=== PATIENT | female | born 1945 | race Caucasian/White ===

== ENCOUNTER 2020-08-19 10:15 | Emergency (ER) | payer OTHER ==
--- OUTSIDE RECORDS SUMMARY | 2020-08-19 10:19 | XMS REPORT | Continuity of Care Document ---
:1945 Author Organization [facility] t Address [address] [place] [address] Care Team Providers Name Role Phone Cullen Layton Primary Care Physician Unavailable YURI ESTRADA Attending Clinician Unavailable YURI ESTRADA Admitting Clinician Unavailable Problems Condition Condition Condition Status Onset Resolution Last Treating Co mments Source Name Details Category Date Date Treatment Clinician Date Cataract, Cataract, Disease Active [facility] 10-02 [facility]: [facility] 00 [place] Neuropathy Neuropathy Disease Active [facility] 00 [place] Type 2 Type [address] [facility] diabetes diabetes 08-01 [facility] mellitus mellitus 00:00: Medica l 00 [place] Hypertensi Hypertensi Disease Active [facility] on on 08-01 [facility] 00 [place] High High Disease Active [facility] cholestero cholestero 08-01 [facility] - l l 00:00: Medical 00 Center Allergies, Adverse Reactions, Alerts Allergy Allergy Status Severity Reaction(s) Onset Inactive Treating Comm ents Source Name Type Date Date Clinician [place] Propensi Active Dizzy [facility] ty to 07-31 [facility] - adverse 00:00: Medical reaction 00 Center s Social History Social Habit Start Date Stop Date Quantity Comments Source Sex Assigned At [facility] Alcohol intake 2016-10-03 2016-10-03 Current [facility] es - 00:00:00 00:00:00 non-drinker of Medical Ce nter alcohol (finding) Smoking Status Start Date Stop Date Source Never smoker [facility] Medications Ordered Filled Start Stop Current Ordering Indication Dosage Frequency Signature Comments Components Source Medication Medication Date Date Medication? Clinician (SIG) Name Name metoprolol Yes 50mg QD Take [address] (TOPROL-XL) 10-03 by mouth [facility] - 50 MG 24 hr 11:59: daily. Medi danielle tablet [address] [place] [address] topiramate Yes 50mg Q.5D Take [address] (TOPAMAX) 10-03 by mouth 2 [facility] - 50 MG 11:59: (two) Medical tablet 33 times Center daily. fentaNYL Yes 1{patch Place [address] [facility] (DURAGESIC) 10-03 } patch onto Pauline kes - 50 mcg/hr 11:59: the skin Medi danielle patch 33 every Center third day. alendronate Yes 70mg Take [address] [facility] (FOSAMAX) 10-03 by mouth [facility] - 70 MG 11:59: every 7 Medical tablet 33 days Take Center in the morning with a full glass of water, on an empty stomach, and do not take anything else by mouth or lie down for the next 30 min. . latanoprost Yes 1[drp] QD [address] (XALATAN) 10-03 nightly. [facility] - 0.005 % 11:59: Medical ophthalmic [address] [place] [address] solution aspirin 81 Yes 81mg QD Take [address] MG EC 10-03 by mouth [facility] - tablet 11:59: daily. [address] cholecalcif Yes Take by [facility] St khang, 10-03 mouth. [facility] - vitamin D3, 11:59: Medica l 2,[address] [place] [address] Cap VIT C/VIT Yes Take by [facility] S t E/LUTEIN/MD 10-03 mouth. [facility] - N/OMEGA-3 11:59: Medical (OCUVITE [address] [place] [address] ORAL) glyBURIDE Yes 3mg Take [address] [facility] micronized 10-03 by mouth 2 Maribel es - (GLYNASE) 3 11:59: (two) Medic al MG tablet 33 times Center daily before meals. simvastatin Yes 20mg QD Take [address] [facility] (ZOCOR) 20 6-28 by mouth [facility] - MG tablet 11:59: nightly. [address] Procedures This patient has no known procedures. Results Test Description Test Time Test Comments Results Result Comments Source POCT-GLUCOSE METER 2016-10-03 10:17:00 Test Item Value Reference Range Interpretation Comme nts POC-GLUCOSE METER (BEAKER) (test 215 mg/dL 70-110 H TESTED AT [facility] 7200 code = 1538) [facility] [address] POCT-GLUCOSE [id number] 10:10:00 Test Item Value Reference Range Interpretation Comments POC-GLUCOSE METER 152 mg/dL 70-110 H TESTED AT [facility] 7200 (BEAKER) (test code MARISSA JONES B = 1538) [facility] 7703 0
[2020-08-19 11:08] LABS: Basophils % 0.8 % (0-1.3); Hematocrit 51.3 % (36.0-45.0); Lymphocytes % 4.7 % (15.3-44.8); RBC Red Blood Cell Count 5.09 M/uL (3.86-4.86)
--- NOTE | 2020-08-19 11:13 | RAD REPORT ---
EXAM DESCRIPTION: RAD - Chest Single View - 08/19/2020 11:07 am CLINICAL HISTORY: DYSPNEA Chest pain. COMPARISON: CHEST SINGLE VIEW dated 11/10/2010 FINDINGS: Portable technique limits examination quality. The lungs are grossly clear. The heart is normal in size. No displaced fractures. IMPRESSION: No acute intrathoracic process suspected.
--- NOTE | 2020-08-19 11:18 | RAD REPORT ---
EXAM DESCRIPTION: CT - Head Brain Wo Cont - 08/19/2020 11:11 am CLINICAL HISTORY: DIZZINESS Headache, drowsiness COMPARISON: No comparisons TECHNIQUE: All CT scans are performed using dose optimization technique as appropriate and may inclu de automated exposure control or mA/KV adjustment according to patient size. FINDINGS: No intracranial hemorrhage, hydrocephalus or extra-axial fluid collection.Mild brain atrop hy.No areas of brain edema or evidence of midline shift. The paranasal sinuses and mastoids are clear. The calvarium is intact. IMPRESSION: No acute intracranial abnormality.
[2020-08-19 11:20] LABS: Protime INR 0.91
[2020-08-19] MEDS ORDERED: ONDANSETRON 4 MG/2 ML VIAL ONE (11:20)
[2020-08-19] MEDS ORDERED: NA CHLORIDE 0.9% 1,000 ML ONE (11:20)
[2020-08-19 11:32] LABS: ALT/SGPT 36 U/L (12-78); AST/SGOT 30 U/L (15-37); Alkaline Phosphatase 123 U/L (45-117); BUN Blood Urea Nitrogen 25 mg/dL (7-18); Bilirubin Direct 0.2 mg/dL (0-0.2); Bilirubin Total 0.7 mg/dL (0.2-1.0); Magnesium 2.5 mg/dL (1.8-2.4); NT PRO-BNP 118 pg/mL (<125); Potassium 4.5 mmol/L (3.5-5.1); Protein, Total 7.8 g/dL (6.4-8.2); Sodium Level 130 mmol/L (136-145); Troponin (Emerg Dept Use Only) < 0.02 ng/mL (0.0-0.045)
[2020-08-19 11:33] LABS: Bicarbonate 4 mmol/L (21-32)
[2020-08-19 11:34] LABS: Glucose Level 492 mg/dL (74-106)
[2020-08-19 11:56] LABS: Arterial Blood Carboxyhemoglob 1.6 % (0-1.5); Blood Gas Oxyhemoglobin 94.9 % (94-97); Blood O2 Saturation 97.6 % (92-98.5)
[2020-08-19] MEDS ORDERED: Ringers Lactate 1,000 ML IV ONE (11:58)
[2020-08-19] MEDS ORDERED: D5W 1,000 ML with NA BICARB 8.4% 150 MEQ IV SCH ×2 (12:00)
--- NOTE | 2020-08-19 12:31 | ER ---
Nurse's Notes [facility] Name: Abigail Jose Age: 75 yrs Sex: Female : 1945 Arrival Date: 08/19/2020 Time: 10:17 Bed 13 Private MD: Diagnosis: Diabetes mellitus due to underlying condition with ketoacidosis without coma Presentation: 08/19 10:25 Chief complaint: Patient states: "I am having dizziness and nausea and vomiting that jd3 has been going on for 2 days now. I think I might be dehydrated. I am also having left eye/head pain that has been going on for about that time too.". Coronavirus screen: At this time, the client does not indicate any symptoms associated with coronavirus-19. Ebola Screen: Patient negative for fever greater than or equal to 101.5 degrees Fahrenheit, and additional compatible Ebola Virus Disease symptoms. Initial Sepsis Screen: Does the patient meet any 2 criteria? No. Patient's initial sepsis screen is negative. Does the patient have a suspected source of infection? No. Patient's initial sepsis screen is negative. Risk Assessment: Do you want to hurt yourself or someone else? Patient reports no desire to harm self or others. Onset of symptoms was August 17, 2020. 10:25 Acuity: RUEL 3 jd3 10:25 Method Of Arrival: Wheelchair jd3 Historical: - Allergies: 10:28 Lyrica; jd3 - Home Meds: 10:28 Metformin Oral [Active]; blood pressure med [Active]; jd3 - PMHx: 10:28 Hypertension; Diabetes - NIDDM; jd3 - PSHx: 10:28 eye; jd3 - Immunization history:: Adult Immunizations unknown. - Social history:: Smoking status: unknown. Screenin:30 Abuse screen: Denies threats or abuse. Denies injuries from another. Nutritional ca1 screening: No deficits noted. Tuberculosis screening: No symptoms or risk factors identified. Fall Risk IV access (20 points). Assessment: 10:30 General: Appears in no apparent distress. comfortable, Behavior is calm, cooperative, ca1 appropriate for age. Pain: Complains of pain in left eye Pain currently is 5 out of 10 on a pain scale. Is chronic. Neuro: Level of Consciousness is awake, alert, obeys commands, Oriented to person, place, time, situation, [employer] Lab Technician are equal bilaterally Moves all extremities. Gait is unsteady, Speech is normal, Facial symmetry appears normal, Reports dizziness. Cardiovascular: Heart tones S1 S2 present Capillary refill < 3 seconds Patient's skin is warm and dry. Respiratory: Airway is patent Respiratory effort is even, unlabored, Respiratory pattern is regular, symmetrical, Breath sounds are clear bilaterally. GI: Abdomen is flat, non-distended, Bowel sounds present X 4 quads. Abd is soft and non tender X 4 quads. Reports nausea, vomiting. : No signs and/or symptoms were reported regarding the genitourinary system. EENT: No signs and/or symptoms were reported regarding the EENT system. Derm: Skin is intact, is healthy with good turgor, Skin is pink, warm \\T\\ dry. Musculoskeletal: Circulation, motion, and sensation intact. Capillary refill < 3 seconds. 11:30 Reassessment: Patient appears in no apparent distress at this time. Patient and/or ca1 family updated on plan of care and expected duration. Pain level reassessed. Patient is alert, oriented x 3, equal unlabored respirations, skin warm/dry/pink. 12:30 Reassessment: Patient appears in no apparent distress at this time. Patient and/or ca1 family updated on plan of care and expected duration. Pain level reassessed. Patient is alert, oriented x 3, equal unlabored respirations, skin warm/dry/pink. 13:30 Reassessment: Patient appears in no apparent distress at this time. Patient and/or ca1 family updated on plan of care and expected duration. Pain level reassessed. Patient is alert, oriented x 3, equal unlabored respirations, skin warm/dry/pink. 14:33 Reassessment: Patient appears in no apparent distress at this time. Patient and/or ca1 family updated on plan of care and expected duration. Pain level reassessed. Patient is alert, oriented x 3, equal unlabored respirations, skin warm/dry/pink. Called report to Adrian Bird, to Philipp Gee RN. 15:57 Reassessment: Patient appears in no apparent distress at this time. Patient and/or ca1 family updated on plan of care and expected duration. Pain level reassessed. Patient is alert, oriented x 3, equal unlabored respirations, skin warm/dry/pink. Patient states feeling better. Patient states symptoms have improved. Vital Signs: 10:25 BP 150 / 75; Pulse 102; Resp 20; Temp 96.4; Pulse Ox 100% ; ca1 10:28 Weight 56.7 kg (R); Height 5 ft. 2 in. (157.48 cm) (R); Pain 5/10; jd3 11:00 BP 157 / 61; Pulse 97; Resp 18 S; Pulse Ox 100% on R/A; ca1 12:00 BP 150 / 91; Pulse 93; Resp 17 S; Pulse Ox 100% on R/A; ca1 13:00 BP 159 / 66; Pulse 98; Resp 16 S; Pulse Ox 100% on R/A; ca1 14:00 BP 141 / 66; Pulse 94; Resp 17 S; Pulse Ox 100% on R/A; ca1 14:32 Temp 97.1(TE); Weight 47.5 kg; ca1 15:57 BP 141 / 51; Pulse 88; Resp 16 S; Pulse Ox 100% on R/A; ca1 14:32 Body Mass Index 19.15 (47.50 kg, 157.48 cm) ca1 NIH Stroke Scale Scores: 10:50 NIHSS Score: 2 jr8 ED Course: 10:17 Patient arrived in ED. am2 10:21 Arm band placed on Patient placed in an exam room, on a stretcher. ll1 10:23 Baljit Hatch PA is PHCP. jr8 10:23 Buster Magana MD is Attending Physician. jr8 10:25 Hugh Solano, RN is Primary Nurse. jd3 10:25 Rebecca Alejandro, GEORGETTE is Primary Nurse. ca1 10:26 Triage completed. jd3 10:26 Patient has correct armband on for positive identification. Bed in low position. Call ca1 light in reach. Side rails up X2. school bus monitor on. Pulse ox on. NIBP on. Warm blanket given. 10:50 Missed attempt(s): 22 gauge in right forearm. Bleeding controlled, band aid applied, ca1 catheter tip intact. 10:58 Initial lab(s) drawn, by me, sent to lab. Inserted saline lock: 22 gauge in right ca1 antecubital area, using aseptic technique. Blood collected. 11:38 XRAY Chest (1 view) In Process Unspecified. EDMS 11:38 CT Head Brain wo Cont In Process Unspecified. EDMS 12:30 Derick Pabon DO is Hospitalizing Provider. jr8 12:41 Inserted saline lock: 20 gauge in left hand, using aseptic technique. ,using aseptic ca1 technique. by Jett PALOMINO Blood collected. 13:46 initiated a transfer with Meg from the [facility]. eb 13:59 connected he screw supervisor examination supervisor for [facility] with Baljit Brandon for patient eb transfer consultation. 14:03 administrative approval given by Meg Mendoza Rn/ patient has been accepted to [facility] ICU/ Dr. Fabio Cheema has accepted the patient in transfer/ report to be called to [phone]. 15:57 No provider procedures requiring assistance completed. Patient transferred, IV remains ca1 in place. Administered Medications: 11:03 Drug: NS 0.9% 1000 ml Route: IV; Rate: 1000 ml; Site: right antecubital; ca1 12:00 Follow up: IV Status: Completed infusion; IV Intake: 1000ml ca1 11:03 Drug: Zofran (Ondansetron) 4 mg Route: IVP; Site: right antecubital; ca1 14:34 Follow up: Response: No adverse reaction; Nausea is decreased ca1 11:43 Drug: Ringers - Lactated Ringers Solution 1000 ml Route: IV; Rate: bolus; Site: right ca1 antecubital; 13:00 Follow up: Response: No adverse reaction; IV Status: Completed infusion; IV Intake: ca1 1000ml 13:10 Drug: Insulin Drip - (Insulin Regular Human 100 units, NS 0.9% 100 ml) {Co-Signature: ca1 ll1 (Keke Sung RN).} Route: IV; Rate: calculated rate; Site: right antecubital; 14:35 Follow up: Response: No adverse reaction; IV Status: Infusion continued upon transfer ca1 Intake: 12:00 IV: 1000ml; Total: 1000ml. ca1 13:00 IV: 1000ml; Total: 2000ml. ca1 Output: 14:50 Urine: 500ml (Voided); Total: 500ml. ca1 Outcome: 12:31 Decision to Hospitalize by Provider. jr8 14:04 ER care complete, transfer ordered by . jr8 15:58 Transferred by ground EMS to [facility], Transfer form completed. X-rays sent ca1 w/ patient. 15:59 Condition: stable ca1 15:59 Instructed on the need for transfer. 16:17 Patient left the ED. ca1 NIH Stroke Scale - NIH Stroke Score Date: 08/19/2020 Time: 10:50 Total Score = 2 1a. Level of Consciousness (LOC) - 0(Alert) 1b. Level of Consciousness (LOC) (Year \\T\\ Age) - 0(Both) 1c. LOC Commands (Open \\T\\ Closes Eyes/Charging Operator) - 0(Both) 2. Best Gaze (Lateral Gaze Paresis) - 0(Normal) 3. Visual Field Loss - 0(No visual loss) 4. Facial Palsy - 0(Normal) 5a. Left Arm: Motor (10-second hold) - 0(No drift) 5b. Right Arm: Motor (10-second hold) - 0(No drift) 6a. Left Leg: Motor (5-second hold - always test supine) - 0(No drift) 6b. Right Leg: Motor (5-second hold - always test supine) - 0(No drift) 7. Limb Ataxia (finger/nose \\T\\ heel/morfin - test with eyes open) - 2(Present in two limbs) 8. Sensory Loss (pinprick arms/legs/face) - 0(Normal) 9. Best Language: Aphasia (description/naming/reading) - 0(No aphasia) 10. Dysarthria (speech clarity - read or repeat words) - 0(Normal) 11. Extinction and Inattention (visual/tactile/auditory/spatial/personal) - 0(No abnormality) Initials: jrChepe Signatures: Dispatcher [employer] EDMS Baljit Hatch PA PA jr8 Kaylan Ferris Jonathon, RN RN jd3 Lalita Perez Cheryl, RN RN ca1 Keke Sung RN RN ll1 Keke Sung RN ll1 Corrections: (The following items were deleted from the chart) 14:05 10:30 Neuro: Level of Consciousness is awake, alert, obeys commands, Oriented ca1 to person, place, time, situation, Reports dizziness, ca1
--- NOTE | 2020-08-19 12:32 | EDPHYS ---
Physician Documentation [facility] Name: Abigail Jose Age: 75 yrs Sex: Female : 1945 Arrival Date: 08/19/2020 Time: 10:17 Bed 13 Private MD: ED Physician Buster Magana HPI: 08/19 10:50 This 75 yrs old Female presents to ER via Wheelchair with complaints of jr8 Dizziness, General Weakness, Vomiting, Eye Pain, Trouble Walking. 10:50 The patient presents with feeling off balance. Onset: The symptoms/episode jr8 began/occurred acutely, today. Context: occurred at home, occurred while the patient was standing. Modifying factors: The symptoms are alleviated by lying down, the symptoms are aggravated by standing up, changing position. Associated signs and symptoms: Pertinent positives: nausea, vomiting. Severity of symptoms: At their worst the symptoms were moderate in the emergency department the symptoms are unchanged. Patient's baseline: Neuro: alert and fully oriented, Motor: no deficits, Ambulation: walks without assistance, Speech: normal. The patient has not experienced similar symptoms in the past. The patient has not recently seen a physician. Patient stated that she is here locally for a family reunion. Stated that yesterday after a walk started to feel week. Had several episodes of vomiting since then. Today continues to be nauseated and vomit. Now with unsteady gate. Stated that she feels very weak. Has chronic left eye problems which she has had temporal biopsy before for with negative results. Stated that the eye pain feels the same and is no different then years past. Historical: - Allergies: 10:28 Lyrica; jd3 - Home Meds: 10:28 Metformin Oral [Active]; blood pressure med [Active]; jd3 - PMHx: 10:28 Hypertension; Diabetes - NIDDM; jd3 - PSHx: 10:28 eye; jd3 - Immunization history:: Adult Immunizations unknown. - Social history:: Smoking status: unknown. ROS: 10:50 Eyes: Negative for injury, redness, and discharge. Positive for pain to left eye ENT: jr8 Negative for injury, pain, and discharge, Neck: Negative for injury, pain, and swelling, Cardiovascular: Negative for chest pain, palpitations, and edema, Respiratory: Negative for shortness of breath, cough, wheezing, and pleuritic chest pain, Back: Negative for injury and pain, MS/Extremity: Negative for injury and deformity, Skin: Negative for injury, rash, and discoloration. 10:50 Abdomen/GI: Positive for nausea and vomiting, abdominal cramps, Negative for diarrhea. 10:50 Neuro: Positive for dizziness, gait disturbance. Exam: 10:50 Eyes: Pupils equal round and reactive to light, extra-ocular motions intact. Lids and jr8 lashes normal. Conjunctiva and sclera are non-icteric and not injected. Cornea within normal limits. Periorbital areas with no swelling, redness, or edema. ENT: Nares patent. No nasal discharge, no septal abnormalities noted. Tympanic membranes are normal and external auditory canals are clear. Oropharynx with no redness, swelling, or masses, exudates, or evidence of obstruction, uvula midline. Mucous membranes moist. Neck: Trachea midline, no thyromegaly or masses palpated, and no cervical lymphadenopathy. Supple, full range of motion without nuchal rigidity, or vertebral point tenderness. No Meningismus. Cardiovascular: Regular rate and rhythm with a normal S1 and S2. No gallops, murmurs, or rubs. Normal PMI, no JVD. No pulse deficits. Respiratory: Lungs have equal breath sounds bilaterally, clear to auscultation and percussion. No rales, rhonchi or wheezes noted. No increased work of breathing, no retractions or nasal flaring. Abdomen/GI: Soft, non-tender, with normal bowel sounds. No distension or tympany. No guarding or rebound. No evidence of tenderness throughout. Back: No spinal tenderness. No costovertebral tenderness. Full range of motion. Skin: Warm, dry with normal turgor. Normal color with no rashes, no lesions, and no evidence of cellulitis. MS/ Extremity: Pulses equal, no cyanosis. Neurovascular intact. Full, normal range of motion. 10:50 Neuro: Orientation: to person, place, time \\T\\ situation. Mentation: is normal, Memory: is normal, Cranial nerves: CN I not tested, CN II- XII are normal as tested, visual soria are intact. extraocular movements are intact, Nystagmus is absent. Speech is clear and appropriate. Tongue strength is normal, Cerebellar function: dysmetria is noted on both sides, the patient is unable to track heel to morfin on both sides, Motor: moves all fours, strength is 5/5 in all extremities, Sensation: no obvious gross deficits, seizure activity, is not displayed by the patient, Abnormal movements: there are no abnormal movements. 10:55 ECG was reviewed by the Attending Physician. 8 Vital Signs: 10:25 BP 150 / 75; Pulse 102; Resp 20; Temp 96.4; Pulse Ox 100% ; ca1 10:28 Weight 56.7 kg (R); Height 5 ft. 2 in. (157.48 cm) (R); Pain 5/10; jd3 11:00 BP 157 / 61; Pulse 97; Resp 18 S; Pulse Ox 100% on R/A; ca1 12:00 BP 150 / 91; Pulse 93; Resp 17 S; Pulse Ox 100% on R/A; ca1 13:00 BP 159 / 66; Pulse 98; Resp 16 S; Pulse Ox 100% on R/A; ca1 14:00 BP 141 / 66; Pulse 94; Resp 17 S; Pulse Ox 100% on R/A; ca1 14:32 Temp 97.1(TE); Weight 47.5 kg; ca1 15:57 BP 141 / 51; Pulse 88; Resp 16 S; Pulse Ox 100% on R/A; ca1 14:32 Body Mass Index 19.15 (47.50 kg, 157.48 cm) ca1 NIH Stroke Scale Scores: 10:50 NIHSS Score: 2 jr8 MDM: 10:23 Patient medically screened. [facility] 12:30 Data reviewed: vital signs, nurses notes, lab test result(s), EKG, radiologic studies, [facility] CT scan, plain films. Data interpreted: Pulse oximetry: on room air is 100 %. Interpretation: normal. Counseling: I had a detailed discussion with the patient and/or guardian regarding: the historical points, exam findings, and any diagnostic results supporting the discharge/admit diagnosis, lab results, radiology results, the need to transfer to another facility, for higher level of care. 14:03 ED course: Spoke with Dr. Cheema at [facility] ICU. Accepted patient as we do not [facility] have ICU level care at this time due to capacity . 08/19 10:41 Order name: Basic Metabolic Panel 8 08/19 10:41 Order name: CBC with Diff; Complete Time: 13:25 8 08/19 10:41 Order name: LFT's 08/19 10:41 Order name: Magnesium; Complete Time: 11:52 08/19 10:41 Order name: NT PRO-BNP; Complete Time: 11:52 08/19 10:41 Order name: PT-INR; Complete Time: 11:52 8 08/19 10:41 Order name: Troponin (emerg Dept Use Only); Complete Time: 11:52 08/19 10:42 Order name: Basic Metabolic Panel; Complete Time: 11:52 EDMS 08/19 10:42 Order name: Liver (Hepatic) Function; Complete Time: 11:52 EDMS 08/19 11:36 Order name: ABG; Complete Time: 12:31 08/19 11:38 Order name: Manual Differential; Complete Time: 13:25 EDMS 08/19 11:38 Order name: Glucose, Ancillary Testing; Complete Time: 11:52 EDMS 08/19 11:53 Order name: Lactate; Complete Time: 13:25 8 08/19 11:53 Order name: CK; Complete Time: 13:25 8 08/19 10:41 Order name: XRAY Chest (1 view); Complete Time: 11:52 08/19 10:41 Order name: EKG; Complete Time: 10:42 08/19 10:41 Order name: Cardiac monitoring; Complete Time: 11:05 08/19 10:41 Order name: EKG - Nurse/Tech; Complete Time: 11:03 08/19 10:50 Order name: CT Head Brain wo Cont; Complete Time: 11:52 08/19 13:18 Order name: Glucose, Ancillary Testing; Complete Time: 13:25 EDMS 08/19 13:37 Order name: COVID-19 : Document "Date of Symptom Onset" if Symptomatic. 08/19 14:25 Order name: Glucose, Ancillary Testing; Complete Time: 14:50 EDMS 08/19 15:17 Order name: SARS-COV-2 RT PCR; Complete Time: 15:47 EDMS 08/19 15:17 Order name: Glucose, Ancillary Testing; Complete Time: 15:47 EDMS 08/19 16:06 Order name: Glucose, Ancillary Testing; Complete Time: 16:10 EDMS 08/19 10:41 Order name: IV Saline Lock; Complete Time: 11: jr8 08/19 10:41 Order name: Labs collected and sent; Complete Time: jr8 08/19 10:41 Order name: O2 Per Protocol; Complete Time: :8 08/19 10:41 Order name: O2 Sat Monitoring; Complete Time: jr8 08/19 10:41 Order name: Glucose Level; Complete Time: 11:25 jr8 EC:55 Rate is 97 beats/min. Rhythm is regular, Sinus Rhythm. QRS [place] is Normal. OH interval jr8 is normal at 160 msec. QRS interval is normal at 72 msec. QT interval is normal at 370 msec. No Q waves. T waves are Flattened in lead V1. No ST changes noted. Clinical impression: NSR w/ Non-specific ST/T Changes and No evidence of ischemia. Interpreted by me. Reviewed by me. Administered Medications: 11:03 Drug: NS 0.9% 1000 ml Route: IV; Rate: 1000 ml; Site: right antecubital; ca1 12:00 Follow up: IV Status: Completed infusion; IV Intake: 1000ml ca1 11:03 Drug: Zofran (Ondansetron) 4 mg Route: IVP; Site: right antecubital; ca1 14:34 Follow up: Response: No adverse reaction; Nausea is decreased ca1 11:43 Drug: Ringers - Lactated Ringers Solution 1000 ml Route: IV; Rate: bolus; Site: right ca1 antecubital; 13:00 Follow up: Response: No adverse reaction; IV Status: Completed infusion; IV Intake: ca1 1000ml 13:10 Drug: Insulin Drip - (Insulin Regular Human 100 units, NS 0.9% 100 ml) {Co-Signature: ca1 ll1 (Keke Sung RN).} Route: IV; Rate: calculated rate; Site: right antecubital; 14:35 Follow up: Response: No adverse reaction; IV Status: Infusion continued upon transfer ca1 Disposition: 08/20 07:44 Co-signature as Attending Physician, Buster Magana MD I agree with the assessment and malcom plan of care. Disposition: 08/19/20 14:04 Transfer ordered to [facility]. Diagnosis is Diabetes mellitus due to underlying condition with ketoacidosis without coma. - Reason for transfer: Higher level of care. - Accepting physician is Dr. Cheema. - Condition is Fair. - Problem is new. - Symptoms have improved. Critical care time excluding procedures: 08/19 16:49 Critical care time: Bedside Care: 20 minutes, Consultation: 10 minutes, Family jr8 Intervention: 10 minutes. Total time: 40 minutes NIH Stroke Scale - NIH Stroke Score Date: 08/19/2020 Time: 10:50 Total Score = 2 1a. Level of Consciousness (LOC) - 0(Alert) 1b. Level of Consciousness (LOC) (Year \\T\\ Age) - 0(Both) 1c. LOC Commands (Open \\T\\ Closes Eyes/Clinical Nutrition Manager) - 0(Both) 2. Best Gaze (Lateral Gaze Paresis) - 0(Normal) 3. Visual Field Loss - 0(No visual loss) 4. Facial Palsy - 0(Normal) 5a. Left Arm: Motor (10-second hold) - 0(No drift) 5b. Right Arm: Motor (10-second hold) - 0(No drift) 6a. Left Leg: Motor (5-second hold - always test supine) - 0(No drift) 6b. Right Leg: Motor (5-second hold - always test supine) - 0(No drift) 7. Limb Ataxia (finger/nose \\T\\ heel/morfin - test with eyes open) - 2(Present in two limbs) 8. Sensory Loss (pinprick arms/legs/face) - 0(Normal) 9. Best Language: Aphasia (description/naming/reading) - 0(No aphasia) 10. Dysarthria (speech clarity - read or repeat words) - 0(Normal) 11. Extinction and Inattention (visual/tactile/auditory/spatial/personal) - 0(No abnormality) Initials: jr8 Signatures: Dispatcher [employer] EDMS Buster Magana MD MD cha Roszak, Josh, PA PA jr8 Jonathan Jerez, TRACTOR DRIVER TEAMSTER-C TRACTOR DRIVER TEAMSTER-Cla1 Hugh Solano RN RN jRebecca De La Rosa RN RN ca1 Keke Sung RN ll1 Corrections: (The following items were deleted from the chart) 13:27 12:31 Hospitalization Ordered by Derick Pabon DO for Inpatient Admission. jr8 Preliminary diagnosis is Diabetes mellitus due to underlying condition with ketoacidosis without coma. Bed requested for Intensive Care Unit. Status is Inpatient Admission. Condition is Fair. Problem is new. Symptoms have improved. jr8 14:04 12:30 Counseling: I had a detailed discussion with the patient and/or guardian ricky regarding: the historical points, exam findings, and any diagnostic results supporting the discharge/admit diagnosis, lab results, radiology results, the need for further work-up and treatment in the hospital, jr8 14:32 13:38 CORONAVIRUS ordered. EDWA EDMS 16:17 14:04 08/19/2020 14:04 Transfer ordered to [facility]. Diagnosis ca1 is Diabetes mellitus due to underlying condition with ketoacidosis without coma. Reason for transfer: Higher level of care. Accepting physician is Dr. Cheema. Condition is Fair. Problem is new. Symptoms have improved. jr8
[2020-08-19 12:54] LABS: Blood Morphology Comment NOT SEEN (NOT SEEN); Platelet Estimate INCR
[2020-08-19] MEDS ORDERED: INSULIN -REGULAR HUMAN 100 UNIT in NA CHLORIDE 0.9% 100 ML IV SCH (13:00)
[2020-08-19 17:14] VITALS: O2SAT 100
[2020-08-19 17:20] VITALS: TEMP 97.1
[2020-08-19 17:22] VITALS: BP 141/51
== END 2020-08-19 16:17 | disposition short-term general hospital (02) ==
LOC: ER 10:15
DX: E11.10 Type 2 diabetes mellitus with ketoacidosis without coma (principal); I10 Essential (primary) hypertension; Z79.84 Long term (current) use of oral hypoglycemic drugs; Z20.822 Contact with and (suspected) exposure to COVID-19
CPT/HCPCS: 96365; 96367; 96361; 85025; 80048; 36415; 83735; 82550; 85610; 82947 ×5; 80076; 83605; 84484; 83880; 70450; 71045; 82805; 96375; 99285; 96366; U0003; J7120; J7030; J2405; 93005